=== PATIENT | female | born 1985 | race Caucasian/White ===

== ENCOUNTER 2020-02-17 19:25 | Emergency (ER) | payer SELFPAY ==
[~2020-02-17] VITALS: Ht 160 cm; Wt 112.4 kg
[~2020-02-17 19:25] MED LIST: NO HOME MEDS
[2020-02-17] MEDS ORDERED: SULF1TAB49 PO (20:55)
[2020-02-17] MEDS ORDERED: MUPI22OI30 TOP (20:55)
[2020-02-17 21:04] VITALS: BP 134/84
== END 2020-02-17 21:06 | disposition home or self-care (01) ==
LOC: ER 19:26
DX: L02.01 Cutaneous abscess of face (principal); R22.0 Localized swelling, mass and lump, head; Z98.890 Other specified postprocedural states; Z72.89 Other problems related to lifestyle
CPT/HCPCS: 99283

== ENCOUNTER 2020-05-23 11:18 | Emergency (ER) | payer MEDICAID ==
[~2020-05-23] VITALS: Ht 160 cm; Wt 127.3 kg
[2020-05-23 11:46] VITALS: BP 122/92
[2020-05-23] MEDS ORDERED: CLIN300C70 PO (12:34)
== END 2020-05-23 12:50 | disposition home or self-care (01) ==
LOC: ER 11:19
DX: K04.7 Periapical abscess without sinus (principal); Z98.890 Other specified postprocedural states; Z90.49 Acquired absence of other specified parts of digestive tract; Z72.89 Other problems related to lifestyle; Z79.899 Other long term (current) drug therapy
CPT/HCPCS: 99283

== ENCOUNTER 2021-05-16 18:15 | Emergency (ER) | payer MEDICAID ==
[~2021-05-16] VITALS: Ht 160 cm; Wt 86.0 kg
[2021-05-16 19:33] LABS: UA COLLECTION TYPE CLN CATCH MIDSTREAM
[2021-05-16 19:34] LABS: CLARITY,URINE SLIGHTLY CLOUDY (Clear); COLOR,URINE YELLOW (Yellow); GLUCOSE, URINE NEGATIVE (Neg); KETONES,URINE NEGATIVE (Neg); LEUKOCYTE ESTERASE ,URINE MODERATE (Neg); NITRITES, URINE NEGATIVE (Neg); OCCULT BLOOD,URINE NEGATIVE (Neg); PROTEIN,URINE NEGATIVE (Neg); UROBILINOGEN,URINE 0.2 E.U/dL (0.2-1.0)
[2021-05-16 20:11] LABS: BACTERIA,URINE 1+ /HPF (Neg); RBC,URINE NONE SEEN /HPF (0-2); SQUAMOUS EPITHELIAL CELL,UR MANY /LPF (FEW); TRICHOMONAS,URINE FEW /HPF (NEGATIVE)
[2021-05-16 20:13] LABS: ALANINE AMINOTRANSFERASE 20 U/L (12-78); ALBUMIN 3.5 G/DL (3.4-5.0); ALBUMIN/GLOBULIN RATIO 0.9 (1.1-1.5); ALKALINE PHOSPHATASE 95 IU/L (46-116); ANION GAP 9 (8-16); ASPARTATE AMINO TRANSFERASE 27 U/L (10-37); BILIRUBIN,TOTAL 0.8 MG/DL (0.1-1.0); BLOOD UREA NITROGEN 6 MG/DL (7-18); BUN/CREATININE RATIO 9.2 (6.6-38.0); CALCIUM 8.6 MG/DL (8.5-10.1); CHLORIDE 104 MMOL/L (99-107); CREATININE 0.65 MG/DL (0.40-0.90); GLUCOSE 89 MG/DL (70-104); LIPASE 59 U/L (73-393); POTASSIUM 4.1 MMOL/L (3.5-5.1); SODIUM 139 MMOL/L (135-145); TOTAL CARBON DIOXIDE 25.7 MMOL/L (24-32); TOTAL PROTEIN 7.3 G/DL (6.4-8.2); eGFR > 90 ML/MIN
[2021-05-16 20:50] LABS: URINE HCG NEGATIVE (NEG)
[2021-05-16 21:07] LABS: BASOPHILS # (AUTO) 0.1 X10'3 (0-0.2); BASOPHILS % (AUTO) 0.9 % (0-1); EOSINOPHILS % (AUTO) 0.1 % (0-6); HEMATOCRIT 23.6 % (35.0-45.0); HEMOGLOBIN 7.1 g/dl (12.0-16.0); LYMPHOCYTES # (AUTO) 1.7 X10'3 (1.1-4.8); LYMPHOCYTES % (AUTO) 16.4 % (21-51); MEAN CORPUSCULAR HEMOGLOBIN 16.6 PG (27.0-31.0); MEAN CORPUSCULAR VOLUME 55.3 FL (78-98); MEAN PLATELET VOLUME 8.1 FL (7.4-10.4); MONOCYTES # (AUTO) 0.7 X10'3 (0-0.9); MONOCYTES % (AUTO) 6.9 % (2-12); NEUTROPHILS # (AUTO) 7.9 X10'3 (1.8-7.7); NEUTROPHILS % (AUTO) 75.7 % (42-75); PLATELET COUNT 318 X10'3 (140-440); RED BLOOD COUNT 4.26 X10'6 (4.20-5.60); RED CELL DISTRIBUTION WIDTH 18.3 % (11.5-14.5); WHITE BLOOD COUNT 10.5 X10'3 (4.5-11.0)
[2021-05-16 21:15] LABS: UA COLLECTION TYPE CLN CATCH MIDSTREAM
[2021-05-16 21:16] LABS: CLARITY,URINE CLOUDY (Clear); COLOR,URINE DARK YELLOW (Yellow); GLUCOSE, URINE NEGATIVE (Neg); KETONES,URINE 15 mg/dl (Neg); LEUKOCYTE ESTERASE ,URINE SMALL (Neg); NITRITES, URINE NEGATIVE (Neg); OCCULT BLOOD,URINE NEGATIVE (Neg); PROTEIN,URINE NEGATIVE (Neg); UROBILINOGEN,URINE 0.2 E.U/dL (0.2-1.0)
[2021-05-16 21:23] LABS: BACTERIA,URINE 2+ /HPF (Neg); MUCUS STRANDS MODERATE /LPF (Neg); RBC,URINE NONE SEEN /HPF (0-2); SQUAMOUS EPITHELIAL CELL,UR MODERATE /LPF (FEW)
[2021-05-16 21:54] VITALS: BP 119/76
[2021-05-17 00:56] LABS: ANISOCYTOSIS 2+; MICROCYTOSIS 3+; PLATELET ESTIMATE NORMAL
[2021-05-17 00:57] LABS: ELLIPTOCYTES 1+; HYPOCHROMASIA 4+; POIKILOCYTOSIS FEW
[2021-05-17 00:58] LABS: TARGET CELLS FEW
== END 2021-05-17 02:56 | disposition left against medical advice (07) ==
LOC: ER 18:16
DX: R10.84 Generalized abdominal pain (principal); Z53.21 Procedure and treatment not carried out due to patient leaving prior to being seen by health care provider; Z98.890 Other specified postprocedural states; Z72.89 Other problems related to lifestyle
CPT/HCPCS: 36415; 80053; 81001; 81025; 83690; 85008; 85025; 87077; 87088; 87186; 99283

== ENCOUNTER 2022-05-29 16:17 | Emergency (ER) | payer MEDICAID ==
[~2022-05-29] VITALS: Ht 160 cm; Wt 104.5 kg
[2022-05-29 17:36] LABS: BASOPHILS # (AUTO) 0.1 X10'3 (0-0.2); BASOPHILS % (AUTO) 1.7 % (0-1); EOSINOPHILS # (AUTO) 0.1 X10'3 (0-0.9); EOSINOPHILS % (AUTO) 0.9 % (0-6); HEMATOCRIT 23.8 % (35.0-45.0); LYMPHOCYTES # (AUTO) 2.1 X10'3 (1.1-4.8); LYMPHOCYTES % (AUTO) 29.1 % (21-51); MEAN CORPUSCULAR HEMOGLOBIN 14.7 PG (27.0-31.0); MEAN CORPUSCULAR HGB CONC 27.1 g/dL (33.0-36.5); MEAN CORPUSCULAR VOLUME 54.1 FL (78-98); MEAN PLATELET VOLUME 8.2 FL (7.4-10.4); MONOCYTES # (AUTO) 0.5 X10'3 (0-0.9); MONOCYTES % (AUTO) 7.2 % (2-12); NEUTROPHILS # (AUTO) 4.3 X10'3 (1.8-7.7); NEUTROPHILS % (AUTO) 61.1 % (42-75); PLATELET COUNT 426 X10'3 (140-440); RED BLOOD COUNT 4.39 X10'6 (4.20-5.60); RED CELL DISTRIBUTION WIDTH 19.4 % (11.5-14.5); WHITE BLOOD COUNT 7.1 X10'3 (4.5-11.0)
[2022-05-29 17:42] LABS: HEMOGLOBIN 6.4 g/dl (12.0-16.0)
[2022-05-29 17:48] LABS: ALANINE AMINOTRANSFERASE 21 U/L (12-78); ALBUMIN 3.6 G/DL (3.4-5.0); ALKALINE PHOSPHATASE 87 IU/L (46-116); ANION GAP 8 (8-16); ASPARTATE AMINO TRANSFERASE 21 U/L (10-37); BILIRUBIN,TOTAL 0.5 MG/DL (0.1-1.0); BLOOD UREA NITROGEN 7 MG/DL (7-18); BUN/CREATININE RATIO 13.5 (6.6-38.0); CALCIUM 8.7 MG/DL (8.5-10.1); CHLORIDE 103 MMOL/L (99-107); CREATININE 0.52 MG/DL (0.40-0.90); GLUCOSE 89 MG/DL (70-104); SODIUM 137 MMOL/L (135-145); TOTAL CARBON DIOXIDE 25.9 MMOL/L (24-32); TOTAL PROTEIN 7.3 G/DL (6.4-8.2); eGFR > 90 ML/MIN
[2022-05-29 18:22] LABS: ANISOCYTOSIS 2+; HYPOCHROMASIA 2+; MICROCYTOSIS 3+; PLATELET ESTIMATE NORMAL; TOTAL CELLS COUNTED 100
[2022-05-29 18:23] LABS: ELLIPTOCYTES 1+; SCHISTOCYTES FEW
[2022-05-30] MEDS ORDERED: ondansetron/PF 4mg/2ml inj IV ONE (01:55)
[2022-05-30] MEDS ORDERED: famotidine/PF 10 mg/ml inj IV ONE (01:55)
[2022-05-30] MEDS ORDERED: mag hydrox/Alum hydrox/simeth 30ml oral suspension PO ONE (01:55)
[2022-05-30] MEDS ORDERED: LIDOcaine Viscous 15ml cup MM ONE (01:55)
[2022-05-30 04:33] LABS: OCCULT BLOOD STOOL NEGATIVE (Neg)
[2022-05-30] MEDS ORDERED: FERR236T3 PO (05:51)
--- NOTE | 2022-05-30 06:17 | NUR ---
TC TO BLOOD BANK. LAB IS WORKING ON CROSS MATCHING A UNIT FOR THE PATIENT.
[2022-05-30 08:25] VITALS: BP 148/89
[2022-05-30 08:45] VITALS: BP 120/72
[2022-05-30 09:45] VITALS: BP 143/76
[2022-05-30 11:56] VITALS: BP 140/82
== END 2022-05-30 11:53 | disposition home or self-care (01) ==
LOC: ER 16:18
DX: R10.13 Epigastric pain (principal); R07.9 Chest pain, unspecified; D64.9 Anemia, unspecified; Z79.899 Other long term (current) drug therapy
CPT/HCPCS: 36415; 36430; 71045; 80053; 82272; 83880; 84484; 85007; 85025; 86885; 86900; 86901; 86922; 93005; 96374; 96375; 99285; J2405; J3490; J7030; P9016